=== PATIENT | male | born 1950 | race Caucasian/White ===

== ENCOUNTER 2020-10-27 10:52 | Day surgery (SDC) | payer MEDICARE ==
[~2020-10-27] VITALS: Ht 167.6 cm; Wt 95.8 kg
--- NOTE | ~2020-10-27 | HEMODYNAMI ---
PATIENT:PURA JIMENEZ MEDICAL RECORD: [id number] : 50 LOCATION:[facility] ADMISSION DATE: 10/27/20 Generatedon:113:31 Patient name: PURA JIMENEZ Patient #: [id number] : 1950 Date of study: 10/27/2020 Page: Of Hemodynamic Procedure Report Patient Data Patient Demographics First Name: PURA Gender: Male Last Name: TONY : 1950 Patient #: [id number] Age: 70 year(s) Race: Unknown SSN: [id number] Additional ID: [id number] Contact details [address]: [address] [place] [address] State: [place] City: [place] Zip code: [address] Admission Admission Data Admission Date: 10/27/2020 Admission Time: 10:52 Arrival Date: 10/27/2020 Arrival Time: 0:00 Admit Source: Other Insurance Payor: Medicaid [facility] #: [id number] Height (in.): 67 BSA: 2.08 (m2) Height (cm.): 170.18 BMI: 33.52 (kg/m2) Weight (lbs.): 214 Weight (kg.): 97.07 Lab Results Lab Result Date: 10/27/2020 Lab Result Time: 0:00 Biochemistry Name Units Result Min Max BUN mg/dl 16 --(---*)-- 7 18 Creatinine mg/dl 1.2 --(---*)-- 0.6 1.3 eGFR ml/min 64.04523 *-(----)-- 90 120 NONAFRICAN CBC Name Units Result Min Max Hemoglobin g/dl 14.6 --(-*--)-- 13.5 17.5 Procedure Procedure Types Cath Procedure Diagnostic Procedure LHC LH w/Coronaries Aortic Root Angiography Sedation Charges Moderate Sedation 10-24 minutes Procedure Description Procedure Date Procedure Date: 10/27/2020 Procedure Start Time: 13:06 Procedure End Time: 13:30 Procedure Staff Name Function Chucho Carranza RN Nurse George Sauer MD Performing Physician Aliza Lentz RT Monitor Tomeka Bolden RT Scrub Procedure Data Cath Procedure Fluoroscopy Diagnostic fluoroscopy Total fluoroscopy Time: 3.6 time: 3.6 min min Diagnostic fluoroscopy Total fluoroscopy dose: 805 dose: 805 mGy mGy Contrast Material Contrast Material Type Amount (ml) Isovue 300 126 Entry Location Entry Primary Successful Side Size Upsize Upsize Entry Closure Succes sful Closure Location (Fr) 1 (Fr) 2 (Fr) Remarks Device Remarks Femoral Right 5 Fr Exoseal artery Estimated blood loss: 10 ml Diagnostic catheters Device Type Used For End Catheter Placement MULTIPACK JL 4.0 5Fr Procedure catheter MULTIPACK 3DRC 5Fr Procedure catheter DIAGNOSTIC AL1 5Fr Procedure catheter ([id number]) MULTIPACK Pigtail 5 Fr Ventriculography catheter Procedure Complications No complications Procedure Medications Medication Administration Route Dosage 0.9% NaCl I.V. 100 ml/hr Oxygen etCO2 Nasal cannula 2 l/min Heparin Flush Bag added to field 2 bags (1000units/500ml NS) Lidocaine 2% added to field 20 Versed I.V. 2 mg Fentanyl I.V. 100 mcg Versed I.V. 2 mg Fentanyl I.V. 100 mcg Hemodynamics Rest BSA: 2.08 (m2) HGB: 14.6 (g/dl) O2 Consumption: Estimated: 223.23 (ml/min) O2 Co nsumption indexed: Estimated:107.32 (ml/min/m) Heart Rate: 48 (bpm) Pressure Samples Time Site Value (mmHg) Purpose Heart Use Rate(bpm) 13:16 LV 173/-3,7 Snapshot 48 13:18 AO 211/63(125) Pullback 84 13:18 LV 206/-11,24 Pullback 84 Gradients Valve Time Site 1 Site 2 Mean SEP/DFP Peak To Heart Use (mmHg) (sec/min) Peak Rate (mmHg) (bpm) Aortic 13:18 LV AO 0 27 0 84 206/-11,24 211/63(125) Calculations Valve P-P Mean Valve Index Valve Source Name Gradient Area Flow (cm2) Aortic 0 0 0 0 Snapshots Pre Cath Intra NCS Post Cath Vital Signs Time Heart Resp SPO2 etCO2 NIBP (mmHg) Rhythm Pain Sedation Rate (ipm) (%) (mmHg) Status Level (bpm) 12:58:25 64 11 95 44.4 178/77(138) NSR 0 (11) 10(A) , No pain 13:03:24 68 10 97 31.6 190/74(140) NSR 0 (11) 10(A) , No pain 13:07:29 73 11 97 32.4 180/102(138) NSR 0 (11) 10(A) , No pain 13:11:37 62 16 89 36.9 165/81(129) NSR 0 (11) 10(A) , No pain 13:16:24 87 17 89 0 182/99(151) NSR 0 (11) 10(A) , No pain 13:20:32 75 14 96 30.1 184/84(151) NSR 0 (11) 10(A) , No pain 13:25:31 71 15 96 36.2 186/91(137) NSR 0 (11) 10(A) , No pain 13:29:41 61 12 95 44.5 181/72(114) NSR 0 (11) 10(A) , No pain Medications Time Medication Route Dose Verified Delivered Reason Notes Eff ectiveness by by 12:56:29 0.9% NaCl I.V. 100 Chucho Chucho Per ml/hr Tere Carranza physician RN RN 12:56:39 Oxygen etCO2 2 Chucho Chucho for low 02 Nasal l/min Lorigan Lorigan sats cannula RN RN 12:57:10 Heparin Flush added 2 Chucho Chucho used for Bag to bags Lorigan Lorigan procedure (1000units/500ml field RN RN NS) 12:57:22 Lidocaine 2% added 20ml Chucho Chucho for local to vial Lorigan Lorigan anesthetic field RN RN 13:06:28 Versed I.V. 2 mg Chucho Chucho for Lorigan Lorigan sedation RN RN 13:06:37 Fentanyl I.V. 100 Chucho Chucho for mcg Lorigan Lorigan sedation RN RN 13:08:12 Versed I.V. 2 mg Chucho Chucho for Lorigan Lorigan sedation RN RN 13:08:20 Fentanyl I.V. 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 Log Time Note 12:10:54 Arrival Date: 10/27/2020 12:00:00 AM 12:11:14 Admit Source: Other 12:11:19 Insurance Payor : Medicaid 12:11:28 Patient Weight : 214 lbs 12:11:51 Patient Height : 67 inches 12:45:09 Lab Result : BUN 16 mg/dl 12:45:09 Lab Result : eGFR NONAFRICAN 64.90140 ml/min 12:45:09 Lab Result : Hemoglobin 14.6 g/dl 12:45:09 Lab Result : Creatinine 1.2 mg/dl 12:46:15 Procedure type changed to Cath procedure, Diagnostic procedure, LHC, LHC w/Coronaries, Aortic Root Angiography, Sedation Charges, Moderate Sedation 10-24 minutes 12:46:33 Diagnostic Cath Status : Elective 12:56:29 0.9% NaCl 100 ml/hr I.V. was administered by Chucho Carranza RN; Per physician; Verbal order read back and verified. 12:56:39 Oxygen 2 l/min etCO2 Nasal cannula was administered by Chucho Carranza RN; for low 02 sats; Verbal order read back and verified. 12:57:10 Heparin Flush Bag (1000units/500ml NS) 2 bags added to field was administered by Chucho Carranza RN; used for procedure; Verbal order read back and verified. 12:57:22 Lidocaine 2% 20ml vial added to field was administered by Chucho Carranza RN; for local anesthetic; Verbal order read back and verified. 12:57:27 Vital chart was started 13:03:33 Procedure Status Elective Heart Cath (OP). 13:03:49 Chucho Carranza RN sent for patient. Start room use. 13:04:06 Time tracking: Regular hours (M-F 7:00 - 5:00) 13:04:11 Plan of Care:Hemodynamics will remain stable., Cardiac rhythm will remain stable., Comfort level will be maintained., Respiratory function will remain adequate., Patient/ family verbilizes understanding of procedure., Procedure tolerated without complication., Recovers from procedure without complications.. 13:04:18 Patient received from Pre/Post Procedure Room to CCL 2 Alert and oriented. Tansferred to table in Supine position. 13:04:19 Warm blankets applied, and mehreen hugger turned on for patient comfort. 13:04:20 Correct patient and procedure confirmed by team. 13:04:20 ECG and BP/O2 sat monitors applied to patient. 13:04:24 Rhythm: sinus rhythm 13:04:25 Full Disclosure recording started 13:04:39 H&P Date Dictated: 10/18/2020 Within 30 days and on chart., H&P Addendum completed by physician on day of procedure. (MUST COMPLETE FOR ALL OUTPATIENTS). 13:04:41 Pre-procedure instructions explained to patient. 13:04:42 Family in waiting room. 13:04:44 Patient NPO since Midnight. 13:04:53 Is the patient allergic to Iodine/contrast media? No. 13:04:58 Is patient on blood thinner?No 13:05:02 Patient diabetic? No. 13:05:04 Snore? Yes 13:05:06 Sleep apnea? No 13:05:16 IV patent on arrival in left forearm with 0.9% NaCl at O. 13:05:21 Lab results completed and on chart. 13:05:26 Right groin area was prepped with chlora-prep and draped in sterile fashion 13:05:27 Alarms reviewed by R. N. 13:05:28 Sharps counted by scrub and verified by R.N. 13:05:29 Physician arrived 13:05:29 --------ALL STOP TIME OUT------ 13:05:31 Final Timeout: patient, procedure, and site verified with staff and physician. All members of the team are in agreement. 13:05:33 Right groin site verified by team. 13:05:37 Fire Safety Assessment: A--An alcohol-based skin anteseptic being used preoperatively., C--Open oxygen or nitrous oxide is being used., D--An ESU, laser, or fiber-optic light is being used. 13:05:48 Physical assessment completed. ASA score P 2 - A patient with mild systemic disease as per George Sauer MD. 13:05:59 2) 60-89 Mildly reduced kidney function, and other findings (as for stage 1) point to kidney disease. 13:06:21 Maximum allowable contrast dose (3.7 X eGFR X 0.75)165 ml. 13:06:28 Versed 2 mg I.V. was administered by Chucho Carranza RN; for sedation; Verbal order read back and verified. 13:06:28 Sedation plan: IV Moderate Sedation Medication:Versed, Fentanyl 13:06:32 Use device set Femoral Dx 13:06:35 Procedure started. 13:06:37 Fentanyl 100 mcg I.V. was administered by Chucho Carranza RN; for sedation; Verbal order read back and verified. 13:06:41 ACIST Syringe (03058) opened to sterile field. 13:06:41 Bag Decanter (2002S) opened to sterile field. 13:06:42 Medline Cath Pack ([id number]) opened to sterile field. 13:06:43 ACIST Hand Control (69209) opened to sterile field. 13:06:43 ACIST Manifold (72441) opened to sterile field. 13:06:45 DIAGNOSTIC Multipack 5Fr catheter set (AL6560) opened to sterile field. 13:06:46 Tegaderm 4 x 4 (1626W) opened to sterile field. 13:06:47 SHEATH 5FR [place] (XVN856) opened to sterile field. 13:06:48 EMERALD Guide Wire (715-685) opened to sterile field. 13:06:54 Local anesthetic to right femoral artery with Lidocaine 2% by Chucho Carranza RN.INITIAL ACCESS ONLY 13:07:22 A 5 Fr sheath was inserted into the Right Femoral artery 13:08:12 Versed 2 mg I.V. was administered by Chucho Carranza RN; for sedation; Verbal order read back and verified. 13:08:20 Fentanyl 100 mcg I.V. was administered by Chucho Carranza RN; for sedation; Verbal order read back and verified. 13:10:07 A MULTIPACK JL 4.0 5Fr catheter was advanced over the wire and used for Procedure. 13:10:10 LCA angiography performed. 13:10:50 Catheter removed. 13:10:57 A MULTIPACK 3DRC 5Fr catheter was advanced over the wire and used for Procedure. 13:13:46 unable to cannulate RCA 13:13:47 Catheter removed. 13:13:53 A DIAGNOSTIC AL1 5Fr catheter ([id number]) was advanced over the wire and used for Procedure. 13:13:55 RCA angiography performed. 13:14:21 Zero performed for pressure channel P1 13:14:39 A MULTIPACK Pigtail 5 Fr catheter was advanced over the wire and used for Ventriculography. 13:15:02 LV hemodynamics recorded. 13:17:12 EF : 50 % 13:18:22 Aortic Root visualized 13:19:54 EXOSEAL 5Fr (EX500) opened to sterile field. 13:19:59 Catheter removed. 13:20:11 Sheath removed intact; hemostasis achieved with Exoseal to the Right Femoral artery. 13:20:22 Procedure ended.(Physican Out) 13:21:30 Fluoroscopy time 03.60 minutes. 13:21:36 Fluoroscopy dose: 805 mGy 13:21:36 Flurop Dose total: 805 13:21:41 Dose Area Product 11228 mGy/cm. 13:21:47 Contrast amount:Isovue 300 126ml. 13:21:50 Maximum allowable dose exceeded? No. 13:21:51 Sharps counted by scrub and verified by R.N. 13:26:44 Insertion/operative site no bleeding no hematoma. 13:27:11 Post-op/insertion site Right Femoral artery dressed using a 4 x 4 and Tegaderm. 13:27:17 Post right femoral artery:stable 13:27:28 Post-procedure physical assessment completed. ASA score P 2 - A patient with mild systemic disease as per George Sauer MD. 13:27:30 Post procedure rhythm: unchanged. 13:27:34 Estimated blood loss: 10 ml 13:27:38 Post procedure instruction explained to patient.Patient verbalizes understanding. 13:27:51 Procedure and supply charges have been captured, reviewed, submitted and are correct. 13:29:10 Procedure Complication : No complications 13:29:13 Vital chart was stopped 13:29:51 [facility] Findings: MVD- MD will discuss options w/ pt 13:29:54 Operative report dictated upon procedure completion. 13:29:55 See physician's report for complete and final results. 13:29:57 Report given to Pre/Post Procedure Room. 13:30:01 Patient transfered to Pre/Post Procedure Room with Stretcher. 13:30:03 Procedure ended. 13:30:03 Full Disclosure recording stopped 13:30:09 End room use (Document Last) 13:30:25 End room use (Document Last) 13:31:10 End room use (Document Last) Device Usage Item Name Manufacture Quantity Catalog Hospital Part Current Minimal L ot# / Number Charge Number Stock Stock Serial# Code ACIST Acist 1 19636 186086 127885 [id number] 20 Syringe Medical (85249) Systems Inc Bag Microtek 1 2001S 008367 82787 286232 5 Decanter Medical Inc. () Medline Medline 1 [id number] 958576 58938 406217 5 Cath Pack ([id number]) ACIST Hand Acist 1 77746 662061 328163 657117 5 Control Medical (98872) Systems Inc ACIST Acist 1 70056 021010 968784 122914 5 Manifold Medical (89570) Systems Inc DIAGNOSTIC Cardinal 1 [id number] 090181 40434 918220 30 [employer] 5Fr catheter set (AF0235) Tegaderm 4 3M 1 1626W 179668 269649 944461 5 x 4 (1626W) SHEATH 5FR Terumo 1 [id number] 050260 299706 665090 5 [place] (SRD445) EMERALD Cardinal 1 502455 039670 928699 185623 5 Guide Wire Health (502455) MULTIPACK Cardinal 1 121510 5 JL 4.0 5Fr Health catheter MULTIPACK Cardinal 1 880350 5 3DRC 5Fr Health catheter DIAGNOSTIC Cardinal 1 [id number] 498742 468773 811235 15 AL1 5Fr Health catheter (790389W) MULTIPACK Cardinal 1 443798 5 Pigtail 5 Health Fr catheter EXOSEAL 5Fr Cardinal 1 EX500 535497 150590 182613 10 (EX500) Health Signature Audit Rattan Stage Time Signature Unsigned Intra-Procedure 10/27/2020 Aliza Lentz 1:30:26 PM RT(R) Intra-Procedure 10/27/2020 Chucho 1:31:10 PM Tere RN Intra-Procedure 10/27/2020 George Sauer MD 1:31:47 PM Signatures Nurse : Chucho Carranza Signature : RN Date : Time : Performing Physician : Signature : George Sauer MD Date : Time : Monitor : Aliza Guidour Signature : RT Date : Time : [place] [address] [place] [address]
[~2020-10-27 10:52] MED LIST: MICARDIS40 MG PO; XARELTO15 MG PO; XARELTO20 MG PO
[2020-10-27] MEDS ORDERED: ANORO ELLIPTA1 EACH INH (11:28)
[2020-10-27] MEDS ORDERED: ELIQUIS5 MG PO (11:29)
[2020-10-27 11:46] VITALS: BP 200/69; Ht 167.6 cm; Wt 95.8 kg
[2020-10-27 11:58] LABS: BASOPHILS 0.8 % (0-2); EOSINOPHILS 2.8 % (0-7); HEMOGLOBIN 14.6 g/dL (13.5-17.5); IMMATURE GRANULOCYTES 0.4 % (0-5); LYMPHOCYTE ABS# 1.14 10x3/uL (1.32-3.57); LYMPHOCYTES 22.7 % (15-50); MCH 33.2 pg (26.0-34.0); MCV 97.7 fL (80.0-100.0); MEAN PLATELET VOLUME 10.7 fL (7.4-10.4); MONOCYTES 13.9 % (2-11); NEUTROPHIL ABS# 2.99 10x3/uL (1.78-5.38); NEUTROPHILS 59.4 % (40-80); RDW 13.4 % (11.5-14.5)
[2020-10-27 12:02] LABS: PLATELET COUNT 140 10x3/uL (130-400)
[2020-10-27 12:08] LABS: ANION GAP 13.5 mmol/L (8-16); CALCIUM 9.1 mg/dL (8.5-10.1); CARBON DIOXIDE 25.6 mmol/L (21.0-32.0); CHOL - HDL RATIO 2.5 ratio (2.3-4.9); CREATININE - SERUM 1.2 mg/dL (0.6-1.3); LDL-HDL RATIO 1.4 ratio (1.5-3.5); POTASSIUM - SERUM 4.1 mmol/L (3.5-5.1)
--- NOTE | 2020-10-27 13:37 | NUR ---
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 IV INFUSING PER ORDERS, DENIES PAIN OR NEEDS, DR BERMUDEZ AT BEDSIDE TO REVIEW FINDINGS/ RESULTS WITH PT AND SPOUSE.
--- NOTE | 2020-10-27 13:50 | NUR ---
AWAKE AND ALERT, SUPINE, VSS, SB, RIGHT GROINS SOFT WITHOUT OOZING OR BLEEDING NOTED, NO PALPABLE HEMATOMA, EXTREMITY WARN AND PEDAL PULSE PALPABLE, MOVES DIGITS AND CAP REFILL WNL, IV INFUSING PER ORDERS, DENIES PAIN OR NEEDS AT PRESENT, CALL LIGHT WITHIN REACH,SPOUSE AT BEDSIDE, PT AND SPOUSE UPDATED ON PLAN OF CARE
--- NOTE | 2020-10-27 14:10 | NUR ---
PT RESTING QUIETLY DENIES PAIN OR NEEDS, VSS, SB, RIGHT GROIN SOFT WITH NO SIGNS OF BLEEDING OR OOZING, NO PALPABLE HEMATOMA, PEDAL PULSE PALPABLE, IV PATENT, DENIES BATHROOM NEEDS, SPOUSE AT BEDSIDE, PT DISCHARGE TEACHING STARTED. CALL LIGHT WITHIN REACH
--- NOTE | 2020-10-27 14:25 | NUR ---
RIGHT GROIN SOFT NO OOZING OR BLEEDING NOTED, NO PALPABLE HEMATOMA, PEDAL PULSE PALPABLE, DENIES PAIN OR NEEDS, SPOUSE AT BEDSIDE,
--- NOTE | 2020-10-27 14:40 | NUR ---
RIGHT GROIN SOFT NO OOZING OR BLEEDING, NO HEMATOMA PALPABLE, PEDAL PULSE PALPABLE, VSS, SB, IV INFUSING PER ORDERS, CALL LIGHT WITHIN REACH
--- NOTE | 2020-10-27 15:10 | NUR ---
PT PLACED IN SEMI FOWLERS POSITION , VSS, SB, RIGHT GROIN SOFT WITH NO OOZING OR BLEEDING , NO PALPABLE HEMATOMA, PEDAL PULSE PALPABLE, PO FLUIDS OFFERED , OFFERED [facility] BOX PT DECLINES. CALL LIGHT WITHIN REACH
--- NOTE | 2020-10-27 15:20 | NUR ---
IV REMOVED FROM LEFT FOREARM CATHETER INTACT 2 X 2 DRESSING PLACED, DISCHARGE TEACHING COMPLETED PT AND SPOUSE VERBALIZED UNDERSTANDING. RIGHT GROIN SOFT NO HEMATOMA PALPABLE , NO OOZING OR BLEEDING NOTED, PEDAL PULSE PALPABLE, PT DENIES PAIN OR NEEDS . PT UP TO DRESS WITHOUT ASSISTANCE AND AMBULATES TO BATHROOM AND VOIDS WITHOUT DIFFICULTY. QUESTIONS AND CONCERNS ADDRESSED
--- NOTE | 2020-10-27 15:30 | NUR ---
PT DISCHARGED PER ORDERS, NO NEEDS , TAKEN TO FAMILY CAR VIA WHEELCHAIR
== END 2020-10-27 15:30 | disposition home or self-care (01) ==
LOC: D.CATH 10:52
PROVIDERS: ATTEND Internal Medicine Cardiovascular Disease
DX: I20.9 Angina pectoris, unspecified (principal); I35.1 Nonrheumatic aortic (valve) insufficiency; I10 Essential (primary) hypertension; R06.00 Dyspnea, unspecified; I71.2 Thoracic aortic aneurysm, without rupture